=== PATIENT | female | born 1965 ===

== ENCOUNTER 2021-05-02 13:57 | Emergency (ER) | payer MEDICARE, MEDICAID ==
[2021-05-02] MEDS ORDERED: Sodium Chloride 0.9% 10 ML Syringe FLUSH PRN (14:28)
[2021-05-02] MEDS ORDERED: Aspirin 81 MG Tab.Chew PO ONE (14:28)
[2021-05-02] MEDS ORDERED: Metoprolol Tartrate 5 MG/5 ML SDV IVPUSH ONE ×2 (14:48→16:06)
[2021-05-02] MEDS ORDERED: Morphine 2 MG/ML SYRINGE IVPUSH ONE (14:50)
--- NOTE | 2021-05-02 15:10 | CR ---
[id number] RAD/RAD Chest PA or AP 1V EXAM: RAD Chest PA or AP 1V INDICATION: CHEST PAIN. COMPARISON: None. DISCUSSION/IMPRESSION: Cardiomediastinal silhouette is normal in size and contour. Lungs are clear. No pleural effusion or pneumothorax. No visible fracture. Nigel Heard MD 05/02/21 [id number] Thank you for allowing us to participate in the care of your patient.
--- NOTE | 2021-05-02 15:10 | EDM.PDOC ---
ED HPI GENERAL MEDICAL PROBLEM - General Stated Complaint: CAREY>ER Time Seen by Provider: 05/02/21 14:18 Source of Information: Reports: Patient - History of Present Illness INITIAL COMMENTS - FREE TEXT/NARRATIVE: Richa is a 55 y/o female who reports having chest pain this AM. She reports that the pain is 8/10 and it's on the left side of her chest and very sharp, but it also radiates across. Denies any trauma. She did take 3 Nitro and this did not relive her pain, but now she has a headache. Denies that exercise made the pain any worse. She has presented to the clinic and was sent her. Also the last 3 days her blood sugars have been elevated and she cannot get them lower with insulin adjustment. Not sure if she has a UTI or not. Chest Pain Score (Numeric/FACES): 8 - Related Data Allergies Allergy/AdvReac Type Severity Reaction Status Date / Time bee venom protein (honey bee) Allergy Airway Verified 05/02/21 16:47 Tightness cephalexin Allergy Rash Verified 05/02/21 16:47 gentamicin Allergy Rash Verified 05/02/21 16:47 methylprednisolone Allergy Anxiety Verified 05/02/21 16:47 [From Medrol] Home Meds: Home Meds Albuterol Sulfate [Albuterol Sulfate HFA] 2 puff INH Q6H PRN 05/02/21 [History] Aspirin [Halfprin] 81 mg PO DAILY 05/02/21 [History] Clopidogrel Bisulfate [Plavix] 75 mg PO DAILY 05/02/21 [History] Dapagliflozin Propanediol [Farxiga] 10 mg PO DAILY 05/02/21 [History] EPINEPHrine [Epipen] 0.3 mg IM ASDIRECTED PRN 05/02/21 [History] Ergocalciferol (Vitamin D2) [Vitamin D2] 50,000 unit PO Q7D 05/02/21 [History] Gabapentin [Neurontin] 1,200 mg PO TID 05/02/21 [History] Hydrocodone/Acetaminophen [HYDROcodone-Acetaminophen 10-325 MG] 1 each PO Q8H PRN 05/02/21 [History] Insulin Glarg,Human.Rec.Analog [Lantus] 40 unit SUBCUT BEDTIME 05/02/21 [History] Insulin Lispro [Humalog] 0 unit SQ TIDMEALS 05/02/21 [History] Irbesartan [Avapro] 150 mg PO BEDTIME 05/02/21 [History] Isosorbide Mononitrate [Imdur] 60 mg PO BID 05/02/21 [History] Lidocaine/Prilocaine [EMLA Crm] 30 gm TP 05/02/21 [History] Magnesium Oxide 500 mg PO BID 05/02/21 [History] Ondansetron [Zofran ODT] 4 mg PO Q8H PRN 05/02/21 [History] Pantoprazole Sodium [Protonix] 40 mg PO DAILY 05/02/21 [History] Semaglutide [Ozempic] 1 mg SQ Q7D 05/02/21 [History] Torsemide [Demadex] 20 mg PO BID 05/02/21 [History] Triamcinolone Acetonide [Kenalog 0.1% Crm] 1 applic TOP BID 05/02/21 [History] amLODIPine [Norvasc] 5 mg PO DAILY 05/02/21 [History] atorvaSTATin Calcium [Lipitor] 80 mg PO DAILY 05/02/21 [History] busPIRone [Buspar] 7.5 mg PO BID 05/02/21 [History] busPIRone [Buspar] 15 mg PO BEDTIME 05/02/21 [History] carvediloL [Coreg] 25 mg PO BID 05/02/21 [History] cloNIDine [Catapres] 0.1 mg PO Q8H PRN 05/02/21 [History] hydrOXYzine HCL [Atarax] 50 mg PO 05/02/21 [History] hydrOXYzine pamoate [Hydroxyzine Pamoate] 50 mg PO Q6H PRN 05/02/21 [History] metFORMIN HCl [Metformin HCl] 500 mg PO BIDMEALS 05/02/21 [History] Review of Systems - Review of Systems Review Of Systems: See Below Constitutional: Reports: No Symptoms Eyes: Reports: No Symptoms Ears: Reports: No Symptoms Nose: Reports: No Symptoms Mouth/Throat: Reports: No Symptoms Respiratory: Reports: No Symptoms Cardiovascular: Reports: Chest Pain GI/Abdominal: Reports: No Symptoms Genitourinary: Reports: Other (Frequency) Musculoskeletal: Reports: No Symptoms Skin: Reports: No Symptoms Neurological: Reports: No Symptoms Psychiatric: Reports: No Symptoms ED EXAM, GENERAL - Physical Exam Exam: See Below General Appearance: Alert, WD/WN, No Apparent Distress (Obese adult female) Eye Exam: Bilateral Eye: PERRL Ears: Normal External Exam, Normal Canal, Hearing Grossly Normal, Normal TMs Nose: Normal Inspection, Normal Mucosa Throat/Mouth: Normal Inspection, Normal Lips, Normal Oropharynx, Normal Voice Head: Atraumatic, Normocephalic Neck: Normal Inspection, Supple Respiratory/Chest: No Respiratory Distress, Lungs Clear, Other (Tender with palpation to chest wall.) Cardiovascular: Normal Peripheral Pulses, Regular Rate, Rhythm, No Murmur, No Rub GI/Abdominal: Normal Bowel Sounds, Soft, Non-Tender, Other (obese) (Female) Exam: Deferred Rectal (Female) Exam: Deferred Back Exam: Normal Inspection, Full Range of Motion Extremities: Other (Note 1+ edema to lower legs) Neurological: Alert, Oriented, CN II-XII Intact, Normal Cognition Psychiatric: Normal Affect, Normal Mood Skin Exam: Warm, Dry, Intact, Normal Color, No Rash #1 Interpretation EKG Date: 05/02/21 Time: 14:00 Rhythm: NSR Rate (Beats/Min): 73 [place]: Normal P-Wave: Present QRS: Normal ST-T: Normal QT: Normal EKG Interpretation Comments: NSR Course - Vital Signs Text/Narrative:: 1418 The patient was seen by the MOTOR AND [employer] C[employer]. Labs, EKG, and CXR ordered. SHe was given ASA 81mg po x3 since she had taken 1 at home. She also currently on Plavix and took that today. BP elevated. She was given Morphine 1mg IVP for chest pain and since she had 3 Nitro with no relief of her pain. Also given Lopressor 5mg IVP. 1540 Labs reviewed. CBC neg, CMP BUN=34, Wellness Instructor=1.3, Ngfrgvq=319; CRP=<0.2, Troponin I=10; Lactic Acid=1.5; D-Dimer=0.90; Will obtain CTA for =DDimer is pr esence of chest pain. Pain persisting and pt reports only slight relief after pain meds, Morphine 2mg IVP ordered. Will also order GI Cocktail. BP rising. Will given Lopressor 10mg IVP. 1730 CTA pending. Still having 6-7/10 pain in the left uper chest. Reports the pain is "deep inside". Will given Dilaudid 1mg IVP to get her pain under control. BP 188/94. Will repeat a Troponin at this time. 1914 Serial Troponin remains unchanged. CTA negative for any PE, questionable developing infiltrate in the LIAT, but labs do not reflect an infectious process. Still rates pain 03/23. Dilaudid 1mg IVP ordered for pain. 1929 Contacted [facility] and Dr Rockwell, Hospitalist construction stonemason, accepted the patient for admission. Patient still having left upper chest pain. BP better than on admit. Patient left the ER with [facility] in stable condition. Last Recorded V/S: Last Vital Signs Temp 36.6 C 05/02/21 14:02 Pulse 72 05/02/21 18:35 Resp 12 05/02/21 18:35 BP 175/95 H 05/02/21 18:35 Pulse Ox 95 05/02/21 18:35 - Orders/Labs/Meds Orders: Active Orders 24 hr Category Date Time Status EKG Documentation Completion [RC] STAT Care 05/02/21 14:28 Active Head wo Cont [CT] Stat Exams 05/02/21 15:36 Stop Req Hip Min 1V w Pelvis Rt [CR] Stat Exams 05/02/21 15:35 Stop Req CULTURE BLOOD [BC] Stat Lab 05/02/21 14:50 Received CULTURE BLOOD [BC] Stat Lab 05/02/21 14:57 Received HYDROmorphone [Dilaudid] Med 05/02/21 19:38 Once 1 mg IVPUSH ONETIME ONE Sodium Chloride 0.9% [Saline Flush] Med 05/02/21 14:28 Active 10 ml FLUSH ASDIRECTED PRN Blood Culture x2 Reflex Set [OM.PC] Stat Oth 05/02/21 14:28 Ordered Saline Lock Insert [OM.PC] Stat Oth 05/02/21 14:28 Ordered Medication Orders Sodium Chloride (Sodium Chloride 0.9% 10 Ml Syringe) 10 ml FLUSH ASDIRECTED PRN PRN Reason: Keep Vein Open Labs: Laboratory Tests 05/02/21 05/02/21 05/02/21 Range/Units 14:37 14:50 14:50 WBC 5.8 (4.0-10.0) x10^3/uL RBC 3.71 L (4.00-5.50) x10^6/uL Hgb 10.6 L (12.0-16.0) g/dL Hct 31.6 L (33.0-47.0) % MCV 85.2 (78.0-93.0) fL MCH 28.6 (26.0-32.0) pg MCHC 33.5 (32.0-36.0) g/dL RDW Coeff of Derek 14.5 (10.0-15.0) % Plt Count 380 (130-400) x10^3/uL Neut % (Auto) 51.5 (50.0-80.0) % Lymph % (Auto) 37.4 (25.0-50.0) % Mathews % (Auto) 7.8 (2.0-11.0) % Eos % (Auto) 3.1 (0.0-4.0) % Baso % (Auto) 0.2 (0.2-1.2) % PT 9.6 L (9.9-12.5) SEC INR 0.9 L (2.0-3.5) APTT 42.1 H (25.6-32.8) SEC D-Dimer, Quantitative 0.90 H (<=0.58) mg/LFEU Sodium (136-145) mmol/L Potassium (3.5-5.1) mmol/L Chloride (98-107) mmol/L Carbon Dioxide (21-32) mmol/L Anion Gap (5-15) mmol/L BUN (7-18) mg/dL Creatinine (0.55-1.02) mg/dL Est Cr Clr Drug Dosing Estimated GFR (MDRD) Glucose (70-99) mg/dL Lactic Acid (0.4-2.0) mmol/L Calcium (8.5-10.1) mg/dL Corrected Calcium (8.5-10.1) mg/dL Magnesium (1.8-2.4) mg/dL Total Bilirubin (0.2-1.0) mg/dL AST (15-37) U/L ALT (14-59) U/L Alkaline Phosphatase (46-116) U/L Troponin I High Sens (<=51) ng/L C-Reactive Protein (<=0.9) mg/dL NT-Pro-B Natriuret Pep (<=125) pg/mL Total Protein (6.4-8.2) g/dL Albumin (3.4-5.0) g/dL Globulin Albumin/Globulin Ratio Urine Color Light yellow (YELLOW) Urine Appearance Clear (CLEAR) Urine pH 7.0 (5.0-8.0) Ur Specific [place] 1.015 Urine Protein >=300 H (NEGATIVE) mg/dL Urine Glucose (UA) 100 H (NEGATIVE) mg/dL Urine Ketones Negative (NEGATIVE) mg/dL Urine Occult Blood Negative (NEGATIVE) Urine Nitrite Negative (NEGATIVE) Urine Bilirubin Negative (NEGATIVE) Urine Urobilinogen 0.2 (0.2) EU/dL Ur Leukocyte Esterase Negative (NEGATIVE) U Hyaline Cast (Auto) Rare Urine RBC 0-5 (NOT SEEN) /HPF Urine WBC Not seen (NOT SEEN) /HPF Ur Squamous Epith Cells Few H (NOT SEEN) /HPF Ur Renal Epithelial Cell Rare H (NOT SEEN) /HPF Urine Bacteria Not seen (NOT SEEN) /HPF Urine Mucus Not seen (NOT SEEN) /LPF 05/02/21 05/02/21 05/02/21 Range/Units 14:50 14:50 14:50 WBC (4.0-10.0) x10^3/uL RBC (4.00-5.50) x10^6/uL Hgb (12.0-16.0) g/dL Hct (33.0-47.0) % MCV (78.0-93.0) fL MCH (26.0-32.0) pg MCHC (32.0-36.0) g/dL RDW Coeff of Derek (10.0-15.0) % Plt Count (130-400) x10^3/uL Neut % (Auto) (50.0-80.0) % Lymph % (Auto) (25.0-50.0) % Mathews % (Auto) (2.0-11.0) % Eos % (Auto) (0.0-4.0) % Baso % (Auto) (0.2-1.2) % PT (9.9-12.5) SEC INR (2.0-3.5) APTT (25.6-32.8) SEC D-Dimer, Quantitative (<=0.58) mg/LFEU Sodium 132 L (136-145) mmol/L Potassium 4.5 (3.5-5.1) mmol/L Chloride 99 (98-107) mmol/L Carbon Dioxide 29 (21-32) mmol/L Anion Gap 8.5 (5-15) mmol/L BUN 34 H (7-18) mg/dL Creatinine 1.3 H (0.55-1.02) mg/dL Est Cr Clr Drug Dosing TNP Estimated GFR (MDRD) 42 Glucose 228 H (70-99) mg/dL Lactic Acid 1.5 (0.4-2.0) mmol/L Calcium 8.6 (8.5-10.1) mg/dL Corrected Calcium 9.6 (8.5-10.1) mg/dL Magnesium 1.8 (1.8-2.4) mg/dL Total Bilirubin 0.2 (0.2-1.0) mg/dL AST 12 L (15-37) U/L ALT 14 (14-59) U/L Alkaline Phosphatase 71 (46-116) U/L Troponin I High Sens 10 (<=51) ng/L C-Reactive Protein < 0.2 (<=0.9) mg/dL NT-Pro-B Natriuret Pep 534 H (<=125) pg/mL Total Protein 7.3 (6.4-8.2) g/dL Albumin 2.7 L (3.4-5.0) g/dL Globulin 4.6 Albumin/Globulin Ratio 0.59 Urine Color (YELLOW) Urine Appearance (CLEAR) Urine pH (5.0-8.0) Ur Specific [place] Urine Protein (NEGATIVE) mg/dL Urine Glucose (UA) (NEGATIVE) mg/dL Urine Ketones (NEGATIVE) mg/dL Urine Occult Blood (NEGATIVE) Urine Nitrite (NEGATIVE) Urine Bilirubin (NEGATIVE) Urine Urobilinogen (0.2) EU/dL Ur Leukocyte Esterase (NEGATIVE) U Hyaline Cast (Auto) Urine RBC (NOT SEEN) /HPF Urine WBC (NOT SEEN) /HPF Ur Squamous Epith Cells (NOT SEEN) /HPF Ur Renal Epithelial Cell (NOT SEEN) /HPF Urine Bacteria (NOT SEEN) /HPF Urine Mucus (NOT SEEN) /LPF 05/02/21 Range/Units 17:50 WBC (4.0-10.0) x10^3/uL RBC (4.00-5.50) x10^6/uL Hgb (12.0-16.0) g/dL Hct (33.0-47.0) % MCV (78.0-93.0) fL MCH (26.0-32.0) pg MCHC (32.0-36.0) g/dL RDW Coeff of Derek (10.0-15.0) % Plt Count (130-400) x10^3/uL Neut % (Auto) (50.0-80.0) % Lymph % (Auto) (25.0-50.0) % Mathews % (Auto) (2.0-11.0) % Eos % (Auto) (0.0-4.0) % Baso % (Auto) (0.2-1.2) % PT (9.9-12.5) SEC INR (2.0-3.5) APTT (25.6-32.8) SEC D-Dimer, Quantitative (<=0.58) mg/LFEU Sodium (136-145) mmol/L Potassium (3.5-5.1) mmol/L Chloride (98-107) mmol/L Carbon Dioxide (21-32) mmol/L Anion Gap (5-15) mmol/L BUN (7-18) mg/dL Creatinine (0.55-1.02) mg/dL Est Cr Clr Drug Dosing Estimated GFR (MDRD) Glucose (70-99) mg/dL Lactic Acid (0.4-2.0) mmol/L Calcium (8.5-10.1) mg/dL Corrected Calcium (8.5-10.1) mg/dL Magnesium (1.8-2.4) mg/dL Total Bilirubin (0.2-1.0) mg/dL AST (15-37) U/L ALT (14-59) U/L Alkaline Phosphatase (46-116) U/L Troponin I High Sens 10 (<=51) ng/L C-Reactive Protein (<=0.9) mg/dL NT-Pro-B Natriuret Pep (<=125) pg/mL Total Protein (6.4-8.2) g/dL Albumin (3.4-5.0) g/dL Globulin Albumin/Globulin Ratio Urine Color (YELLOW) Urine Appearance (CLEAR) Urine pH (5.0-8.0) Ur Specific [place] Urine Protein (NEGATIVE) mg/dL Urine Glucose (UA) (NEGATIVE) mg/dL Urine Ketones (NEGATIVE) mg/dL Urine Occult Blood (NEGATIVE) Urine Nitrite (NEGATIVE) Urine Bilirubin (NEGATIVE) Urine Urobilinogen (0.2) EU/dL Ur Leukocyte Esterase (NEGATIVE) U Hyaline Cast (Auto) Urine RBC (NOT SEEN) /HPF Urine WBC (NOT SEEN) /HPF Ur Squamous Epith Cells (NOT SEEN) /HPF Ur Renal Epithelial Cell (NOT SEEN) /HPF Urine Bacteria (NOT SEEN) /HPF Urine Mucus (NOT SEEN) /LPF Meds: Medications Generic Name Dose Route Start Last Admin Trade Name Freq PRN Reason Stop Dose Admin Sodium Chloride 10 ml 05/02/21 14:28 Sodium Chloride 0.9% 10 Ml Syringe FLUSH ASDIRECTED PRN Keep Vein Open Discontinued Medications Generic Name Dose Route Start Last Admin Trade Name Freq PRN Reason Stop Dose Admin Al Hydroxide/Mg Hydroxide 30 ml 05/02/21 16:00 05/02/21 16:14 Gi Cocktail Oral Solution 30 Ml PO 05/02/21 16:01 30 ml ONETIME ONE Administration Aspirin 243 mg 05/02/21 14:28 05/02/21 14:19 Aspirin 81 Mg Tab.Chew PO 05/02/21 14:29 243 mg ONETIME ONE Administration Hydromorphone HCl 1 mg 05/02/21 17:31 05/02/21 17:40 Hydromorphone 1 Mg/Ml Syringe IVPUSH 05/02/21 17:32 1 mg ONETIME ONE Administration Iopamidol 100 ml 05/02/21 16:49 05/02/21 17:19 Iopamidol 612 Mg/Ml 100 Ml Bottle IVPUSH 05/02/21 16:50 100 ml ONETIME ONE Administration Metoprolol Tartrate 5 mg 05/02/21 14:48 05/02/21 14:59 Metoprolol Tartrate 5 Mg/5 Ml Sdv IVPUSH 05/02/21 14:49 5 mg ONETIME ONE Administration Metoprolol Tartrate 10 mg 05/02/21 16:06 05/02/21 16:42 Metoprolol Tartrate 5 Mg/5 Ml Sdv IVPUSH 05/02/21 16:07 10 mg ONETIME ONE Administration Morphine Sulfate 1 mg 05/02/21 14:50 05/02/21 14:58 Morphine 2 Mg/Ml Syringe IVPUSH 05/02/21 14:51 1 mg ONETIME ONE Administration Morphine Sulfate 2 mg 05/02/21 15:42 05/02/21 15:51 Morphine 4 Mg/Ml Syringe IVPUSH 05/02/21 15:43 2 mg ONETIME ONE Administration - Radiology Interpretation Free Text/Narrative:: CTA no acute PE, possible developing left upper love infiltrate XR Chest 1V=negative See final reports Departure - Departure Time of Disposition: 19:40 Disposition: DC/Tfer to [facility] 02 Condition: Good Clinical Impression: History of type 2 diabetes mellitus Chest pain Qualifiers: Chest pain type: unspecified Qualified Code(s): R07.9 - Chest pain, unspecified - Discharge Information Referrals: Guadalupe Portillo DO [Primary Care Provider] - Forms: Interfacility Transfer [facility] Sepsis Event Note (ED) - Focused Exam Vital Signs: Vital Signs Temp Pulse Pulse Resp BP BP Pulse Ox 05/02/21 18:35 72 12 175/95 H 95 05/02/21 18:00 76 18 182/94 H 96 05/02/21 17:45 88 176/101 H 05/02/21 17:23 75 17 188/92 H 99 05/02/21 17:07 74 16 156/92 H 98 05/02/21 16:42 75 217/109 H 05/02/21 16:13 83 14 168/97 H 98 05/02/21 15:56 221/120 H 05/02/21 15:29 181/106 H 05/02/21 15:11 88 181/105 H 05/02/21 14:59 82 228/121 H 05/02/21 14:04 231/108 H 05/02/21 14:02 36.6 C 99 18 218/117 H 99 - My Orders Last 24 Hours: My Active Orders 05/02/21 14:28 EKG Documentation Completion [RC] STAT Sodium Chloride 0.9% [Saline Flush] 10 ml FLUSH ASDIRECTED PRN Blood Culture x2 Reflex Set [OM.PC] Stat Saline Lock Insert [OM.PC] Stat 05/02/21 14:50 CULTURE BLOOD [BC] Stat 05/02/21 14:57 CULTURE BLOOD [BC] Stat 05/02/21 15:35 Hip Min 1V w Pelvis Rt [CR] Stat 05/02/21 15:36 Head wo Cont [CT] Stat 05/02/21 19:38 HYDROmorphone [Dilaudid] 1 mg IVPUSH ONETIME ONE - Assessment/Plan Last 24 Hours: My Active Orders 05/02/21 14:28 EKG Documentation Completion [RC] STAT Sodium Chloride 0.9% [Saline Flush] 10 ml FLUSH ASDIRECTED PRN Blood Culture x2 Reflex Set [OM.PC] Stat Saline Lock Insert [OM.PC] Stat 05/02/21 14:50 CULTURE BLOOD [BC] Stat 05/02/21 14:57 CULTURE BLOOD [BC] Stat 05/02/21 15:35 Hip Min 1V w Pelvis Rt [CR] Stat 05/02/21 15:36 Head wo Cont [CT] Stat 05/02/21 19:38 HYDROmorphone [Dilaudid] 1 mg IVPUSH ONETIME ONE Assessment:: 1)Chest Pain 2)Hx Type 2 DM 3)Hx Previous PTCA with stents Plan: -See above
[2021-05-02 15:26] LABS: PTT,PARTIAL THROMBOPLSTIN TIME 42.1 SEC (25.6-32.8)
[2021-05-02 15:33] LABS: CHLORIDE,CL 99 mmol/L (98-107); SODIUM,NA 132 mmol/L (136-145)
[2021-05-02 15:35] LABS: ANION GAP 8.5 mmol/L (5-15)
[2021-05-02] MEDS ORDERED: Morphine 4 MG/ML Syringe IVPUSH ONE (15:42)
[2021-05-02] MEDS ORDERED: GI Cocktail Oral Solution 30 ML PO ONE (16:00)
[2021-05-02] MEDS ORDERED: Iopamidol 612 MG/ML 100 ML Bottle IVPUSH ONE (16:49)
[2021-05-02] MEDS ORDERED: HYDROmorphone 1 MG/ML Syringe IVPUSH ONE ×2 (17:31→19:38)
--- NOTE | 2021-05-02 19:30 | CT ---
[id number] CT/CTA Chest EXAM: CTA Chest CLINICAL DATA: CHEST PAIN, POSITIVE D-DIMER. COMPARISON STUDY: None. FINDINGS: Lungs: Small subtle area of geographic appearing groundglass opacification in the subpleural region of the left upper lobe (series 4 image 36 and series 6 image 57). Finding is nonspecific. Early changes of developing pneumonia are possible. Lungs are otherwise clear. No pleural effusion or pneumothorax. Mediastinum: No mediastinal or hilar lymphadenopathy. Heart and great vessels: Heart is normal in size. No pericardial effusion. Thoracic aorta is normal in caliber. Pulmonary arteries are normal in caliber. Negative for pulmonary embolus. Bones: No acute fracture or compression deformity. Spondylosis. Upper abdomen: Unremarkable. IMPRESSION: Negative for pulmonary embolus. Small subtle area of subpleural groundglass opacification left upper lobe. Finding is nonspecific but possibly developing pneumonia. Correlate for clinical signs of infection. Nigel Heard MD 05/02/21 [id number] Thank you for allowing us to participate in the care of your patient.
== END 2021-05-02 20:19 | disposition short-term general hospital (02) ==
LOC: VM.ED 13:57
DX: R07.9 Chest pain, unspecified (principal); E11.9 Type 2 diabetes mellitus without complications; Z88.1 Allergy status to other antibiotic agents; Z91.030 Bee allergy status; Z88.8 Allergy status to other drugs, medicaments and biological substances; Z79.82 Long term (current) use of aspirin; Z79.02 Long term (current) use of antithrombotics/antiplatelets; Z79.4 Long term (current) use of insulin
CPT/HCPCS: 36415; 70450; 71045; 71275; 80053; 81001; 83605; 83735; 83880; 84484; 85025; 85379; 85610; 85730; 86140; 87040; 93005; 93010; 96374; 96375; 96376; 99284; 99285-25; A9270-GY; J1170; J2270; J3490; Q9967